=== PATIENT | female | born 1970 | race Caucasian/White ===

== ENCOUNTER → 2016-05-19 | Outpatient (CLI) | payer OTHER, BC ==
[2016-05-19 11:11] LABS: ALT 139 U/L (9-52); AST 169 U/L (14-36); Alkaline Phosphatase 144 U/L (38-126); Anion Gap 15 mmol/L; Blood Urea Nitrogen 22 mg/dL (7-17); Calcium 10.2 mg/dL (8.4-10.2); Carbon Dioxide 25 mmol/L (22-30); Chloride 101 mmol/L (98-107); Cholesterol 222 mg/dL (<200); Glucose 123 mg/dL (74-99); HDL Cholesterol 43 mg/dL (40-60); Non-African American GFR(MDRD) 57 (>60 ml/min/1.73 sqM); Potassium 5.2 mmol/L (3.5-5.1); Sodium 141 mmol/L (137-145); Total Bilirubin 0.8 mg/dL (0.2-1.3); Total Protein 8.1 g/dL (6.3-8.2); Triglycerides 226 mg/dL (<150)
== END | disposition home or self-care (01) ==
LOC: LABWHC1 10:10
PROVIDERS: ATTEND Internal Medicine Endocrinology, Diabetes & Metabolism
DX: E11.65 Type 2 diabetes mellitus with hyperglycemia (principal)
CPT/HCPCS: 36415; 80053; 80061; 82043

== ENCOUNTER → 2016-05-24 | Outpatient (CLI) | payer OTHER, BC ==
--- NOTE | 2016-05-24 10:41 | US ---
EXAMINATION TYPE: US abdomen limited DATE OF EXAM: 05/24/2016 10:23 AM COMPARISON: CT abdomen pelvis 07 May 2015 CLINICAL HISTORY: R79.9 ABNORMAL LABS. Cholecystectomy 2016, diabetes EXAM MEASUREMENTS: Liver Length: 20.7 cm Gallbladder Wall: cholecystectomy CBD: 0.2 cm Right Kidney: 11.6 x 4.8 x 5.1 cm TECHNOLOGIST IMPRESSION: extreme large body habitus, overlying bowel gas Pancreas: extreme large body habitus, overlying bowel gas Liver: Liver shows a coarse echotexture and is poorly penetrated by the ultrasound, liver is enlarged Gallbladder: removed Evidence for sonographic Lowery's sign: no CBD: wnl Right Kidney: wnl IMPRESSION: Findings compatible with fatty infiltration of the liver, hepatomegaly, postop change sta tus post cholecystectomy
== END ==
LOC: RADUSWWP 09:02
PROVIDERS: ATTEND Family Medicine
DX: R79.89 Other specified abnormal findings of blood chemistry (principal)
CPT/HCPCS: 76705

== ENCOUNTER → 2016-09-06 | Outpatient (CLI) | payer OTHER, BC ==
--- NOTE | 2016-09-06 12:09 | PN ---
A 46-year-old female patient, obese, coming in for followup regarding the obstructive sleep apnea. She is a preschool teacher aide. The patient was diagnosed having obstructive sleep apnea and she is currently on a BiPAP at a pressure of 20/16 cm of water. On today's evaluation, the patient has no specific complaints. She is very compliant with her BiPAP and she is averaging around 7.1 hours of BiPAP use every night. Her weight is down. At one point, she was weighing up to 320 pounds and currently she is down to 290 as the patient is following Weight Watcher's. She is averaging more than 7 hours of sleep every night and she is waking up alert and refreshed during the day. No major hypersomnia or sleepiness. No drowsiness. No fatigue. Her [place] score is down to 0. 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 She does not fall asleep while driving nor she gets drowsy or sleepy. She seems to be fully alert. No history of any motor vehicle accidents over this past year. The patient also has been diagnosed having diabetes mellitus and she was started on metformin. She has history of hypertension. Currently her blood pressure is under good control. She is still benefiting from the BiPAP treatment. In fact, she tells me that she is unable to sleep without her wearing her BiPAP. She is using a medium-size Simplus full face mask. She has turned the humidity off. She is using regular tubing. Her current vitals: BP is 121/73, pulse is 83, respirations 16, temperature 98.2, saturation is 98% on room air. Weight is 290. BMI is 47.7, [place] score is 0. GENERAL APPEARANCE: Calm, comfortable. HEENT: Crowding of posterior pharynx. There is no goiter or neck masses. LUNGS: Clear to auscultation. HEART: Sounds are regular rate and rhythm. Normal S1, S2. No S3, no S4. No murmurs. ABDOMEN: Obese, soft, nontender. No direct tenderness. No rebound ( ) or guarding. Organs cannot be palpated. EXTREMITIES: No edema. No cyanosis or clubbing. IMPRESSION: 1. Severe symptomatic obstructive sleep apnea. The patient continues to receive successful BiPAP therapy at a pressure of 20/16 cm of water. She is utilizing a Simplus full face mask. She is averaging around 7.1 hours of CPAP use and this is based on the compliance over the past 30 days. 2. Hypersomnia recovered and the patient's [place] score is down to 0. 3. Obesity with interval weight loss. Current BMI is 47.2. 4. Hypertension. 5. New onset diabetes mellitus. PLAN: 1. Treatment remains successful. The patient is very fit to continue her task as a preschool teacher aide. Her sleep apnea is adequately treated and the patient is very compliant. 2. Continue efforts to lose weight. The patient has successfully lost around 30 pounds utilizing Weight Watchers. 3. Implement good sleep hygiene measures. 4. Contact me should there be any issues with her WILLOW treatment. Her treatment is successful. No humidity is being utilized for now. Supplies will be refilled through [facility].
== END ==
LOC: SLEEP 09:45
PROVIDERS: ATTEND Internal Medicine Critical Care Medicine
DX: G47.33 Obstructive sleep apnea (adult) (pediatric) (principal); G47.10 Hypersomnia, unspecified; I10 Essential (primary) hypertension; E11.9 Type 2 diabetes mellitus without complications; E66.9 Obesity, unspecified; R63.4 Abnormal weight loss; Z68.42 Body mass index [BMI] 45.0-49.9, adult

== ENCOUNTER → 2016-12-02 | Outpatient (CLI) | payer OTHER, BC ==
[2016-12-02 10:38] LABS: ALT 94 U/L (9-52); AST 81 U/L (14-36); Alkaline Phosphatase 122 U/L (38-126); Anion Gap 15 mmol/L; Blood Urea Nitrogen 12 mg/dL (7-17); Carbon Dioxide 27 mmol/L (22-30); Chloride 100 mmol/L (98-107); Cholesterol 219 mg/dL (<200); Glucose 127 mg/dL (74-99); HDL Cholesterol 44 mg/dL (40-60); Non-African American GFR(MDRD) >60 (>60 ml/min/1.73 sqM); Sodium 142 mmol/L (137-145); Total Bilirubin 0.7 mg/dL (0.2-1.3); Total Protein 7.9 g/dL (6.3-8.2)
[2016-12-02 16:21] LABS: Urine Creatinine 82.2 mg/dL
== END | disposition home or self-care (01) ==
LOC: LABWHC1 09:40
PROVIDERS: ATTEND Internal Medicine Endocrinology, Diabetes & Metabolism
DX: E11.65 Type 2 diabetes mellitus with hyperglycemia (principal)
CPT/HCPCS: 36415; 80053; 80061; 82043; 82570

== ENCOUNTER → 2017-06-27 | Outpatient (CLI) | payer OTHER, BC ==
[2017-06-27 14:38] LABS: ALT 90 U/L (9-52); AST 122 U/L (14-36); Albumin 4.3 g/dL (3.5-5.0); Alkaline Phosphatase 147 U/L (38-126); Anion Gap 14 mmol/L; Blood Urea Nitrogen 12 mg/dL (7-17); Calcium 10.3 mg/dL (8.4-10.2); Carbon Dioxide 31 mmol/L (22-30); Chloride 96 mmol/L (98-107); Cholesterol 231 mg/dL (<200); Glucose 201 mg/dL (74-99); HDL Cholesterol 44 mg/dL (40-60); LDL Cholesterol,Calculated 123 mg/dL (0-99); Potassium 4.2 mmol/L (3.5-5.1); Sodium 141 mmol/L (137-145); Total Bilirubin 0.5 mg/dL (0.2-1.3); Total Protein 7.3 g/dL (6.3-8.2); Triglycerides 320 mg/dL (<150)
[2017-06-27 23:56] LABS: Hemoglobin A1C 10.3 % (4.0-6.0)
== END | disposition home or self-care (01) ==
LOC: LABWHC1 14:05
PROVIDERS: ATTEND Internal Medicine Endocrinology, Diabetes & Metabolism
DX: E11.65 Type 2 diabetes mellitus with hyperglycemia (principal)
CPT/HCPCS: 36415; 80053; 80061; 82043; 82570; 83036

== ENCOUNTER → 2017-09-05 | Outpatient (CLI) | payer OTHER, BC ==
--- NOTE | 2017-09-05 18:58 | PN ---
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 She is still on BiPAP with a pressure of 20/16. Her weight has been stable. She is averaging 8 hours of BiPAP use every night and she is waking up alert and refreshed during the day. 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 No motor vehicle accidents because of drowsiness or sleepiness. She is having symptoms of sinus allergies, and this is typical for her to have allergy flareups around spring/summer. She has excessive nasal congestion and drainage and stuffiness. She was treated for an acute sinus infection by [facility] and she was given a Medrol Dosepak by her ENT physician. She is also receiving immunotherapy through Dr. Casarez. Despite all this, she feels congested, stuffy and a tickling in the back of her throat. On and off she is coughing and she is also somewhat bronchospastic and wheezy and more short of breath. No fever or chills. No facial pain. No purulent drainage at this point in time. REVIEW OF SYSTEMS: Twelve-point review of systems was done. Weight has been stable. She has symptoms of allergic rhinitis for now. Occasional pressure over the sinuses. No headaches. No altered mentation. No nausea or vomiting. No chest pain. No nocturnal heartburn or shortness of breath or chest pain. PHYSICAL EXAMINATION: BP is 134/72, pulse 100, respirations 18, temperature 98.2. Weight is 307, height is 5 feet 5 inches, [place] score is zero. BMI is 50.3, saturation 96% on room air. GENERAL APPEARANCE: Calm, comfortable. Head is atraumatic, normocephalic. Neck is short, supple. There is no goiter or neck masses. LUNGS: Clear to auscultation. HEART: Sounds regular rate and rhythm. Normal S1, S2. No S3, S4. No murmurs. ABDOMEN: Soft, nontender. No organomegaly. EXTREMITIES: No edema. No cyanosis or clubbing. Skin is negative for any wounds or ulceration. IMPRESSION: 1. Symptomatic severe obstructive sleep apnea, successfully treated with a BiPAP pressure of 20/16. 2. Hypersomnia, improved while on BiPAP therapy. 3. Obesity with a body mass index of 50.3. 4. Hypertension. 5. Chronic allergic rhinitis. 6. Diabetes mellitus. PLAN: 1. Continue BiPAP at the same level of pressure, 20/16 cm of water. 2. Use the Simplus full-face mask. 3. Averaging more than 8 hours of BiPAP use per night. 4. DOT certification was obtained. 5. Add Flonase 1 spray each nostril twice a day in addition to a Medrol Dosepak regarding her active allergy symptoms. 6. See me back in a year's time in followup, earlier if needed. MMODL / IJN: [id number] /
== END ==
LOC: SLEEP 16:42
PROVIDERS: ATTEND Internal Medicine Critical Care Medicine
DX: G47.33 Obstructive sleep apnea (adult) (pediatric) (principal); E66.9 Obesity, unspecified; I10 Essential (primary) hypertension; J30.89 Other allergic rhinitis; E11.9 Type 2 diabetes mellitus without complications; Z68.43 Body mass index [BMI] 50.0-59.9, adult; Z99.89 Dependence on other enabling machines and devices

== ENCOUNTER 2017-09-13 04:04 | Emergency (ER) | payer OTHER, BC ==
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
[2017-09-13 04:21] VITALS: TEMP 97.1
[2017-09-13] MEDS ORDERED: SODIUM CHLORIDE 0.9% 500 ML IV STA (04:34)
[2017-09-13] MEDS ORDERED: KETOROLAC 30 MG/ML 1 ML VIAL IVP STA (04:35)
[2017-09-13] MEDS: MORPHINE SULFATE 2 MG/ML SYRINGE IV STA ×2 (04:44→05:30)
[2017-09-13 04:54] LABS: Basophils # (A) 0.1 k/uL (0-0.2); Basophils % (A) 1 %; Eosinophils # (A) 0.2 k/uL (0-0.7); Eosinophils % (A) 3 %; HCT 36.6 % (34.0-46.0); HGB 12.1 gm/dL (11.4-16.0); Lymphocytes # (A) 2.1 k/uL (1.0-4.8); Lymphocytes % (A) 29 %; MCH 28.1 pg (25.0-35.0); MCHC 33.2 g/dL (31.0-37.0); MCV 84.6 fL (80.0-100.0); Mean Platelet Volume 7.3; Monocytes # (A) 0.3 k/uL (0-1.0); Monocytes % (A) 4 %; Neutrophils # (A) 4.5 k/uL (1.3-7.7); Neutrophils % (A) 62 %; Platelet Count 201 k/uL (150-450); RBC 4.32 m/uL (3.80-5.40); WBC 7.4 k/uL (3.8-10.6)
[2017-09-13 05:05] LABS: ALT 134 U/L (9-52); AST 112 U/L (14-36); Albumin 4.2 g/dL (3.5-5.0); Alkaline Phosphatase 136 U/L (38-126); Anion Gap 14 mmol/L; Blood Urea Nitrogen 19 mg/dL (7-17); Calcium 9.6 mg/dL (8.4-10.2); Carbon Dioxide 25 mmol/L (22-30); Chloride 102 mmol/L (98-107); Glucose 181 mg/dL (74-99); Magnesium 1.5 mg/dL (1.6-2.3); Phosphorus 3.4 mg/dL (2.5-4.5); Potassium 4.8 mmol/L (3.5-5.1); Sodium 141 mmol/L (137-145); Total Bilirubin 0.7 mg/dL (0.2-1.3); Total Protein 6.7 g/dL (6.3-8.2)
[2017-09-13 05:05] LABS: Appearance,Urine Clear (Clear); Bilirubin,Urine Negative (Negative); Blood,Urine Negative (Negative); Color,Urine Colorless; Glucose,Urine (UA) Negative (Negative); Ketones,Urine Negative (Negative); Leukocyte Esterase,Urine Negative (Negative); Nitrite,Urine Negative (Negative); Protein,Urine Negative (Negative); Specific Gravity,Urine 1.005 (1.001-1.035); Urobilinogen,Urine <2.0 mg/dL (<2.0)
[2017-09-13 05:07] LABS: D-Dimer 0.25 mg/L FEU (<0.60); INR 1.1 (<1.2); Partial Thromboplastin Time 23.3 sec (22.0-30.0); Prothrombin Time 10.5 sec (9.0-12.0)
[2017-09-13 05:14] LABS: Creatine Kinase 52 U/L (30-135)
[2017-09-13 05:27] LABS: Creatine Kinase MB 1.4 ng/mL (0.0-2.4); Troponin I <0.012 ng/mL (0.000-0.034)
--- NOTE | 2017-09-13 05:54 | CT ---
EXAM: CT Abdomen and Pelvis Without Intravenous Contrast CLINICAL HISTORY: Reason: pain TECHNIQUE: Axial computed tomography images of the abdomen and pelvis without intravenous contrast. This CT exam was performed using one or more of the following dose reduction techniques: automated exposure control, adjustment of the mA and/or kV according to patient size, and/or use of iterative reconstruction technique. CTDI vol: 49.60 mGy. DLP: 2470.90 mGy-cm. COMPARISON: 02/14/16 FINDINGS: Lung bases: Unremarkable. No mass. No consolidation. ABDOMEN: Liver: The liver is prominent in size with fatty infiltration, stable. Gallbladder and bile ducts: Status post cholecystectomy. No ductal dilation. Pancreas: Unremarkable. No ductal dilation. Spleen: Unremarkable. No splenomegaly. Adrenals: Unremarkable. No mass. Kidneys and ureters: Unremarkable. No obstructing stones. No hydronephrosis. Stomach and bowel: Unremarkable. No obstruction. No mucosal thickening. PELVIS: Appendix: A normal appendix is noted in the pelvis medial to the cecum. Bladder: The bladder is minimally distended with apparent wall thickening. No stones. Reproductive: Unremarkable as visualized. ABDOMEN and PELVIS: Intraperitoneal space: Unremarkable. No free air. No significant fluid collection. Bones/joints: No acute fracture. No dislocation. Soft tissues: Unremarkable. Vasculature: Unremarkable. No abdominal aortic aneurysm. Lymph nodes: A portocaval lymph node is similar to previous exam. IMPRESSION: No acute CT findings or significant interval change from May 07, 2015 to suggest the cause of the patient's clinical symptoms. No hydronephrosis or evidence for renal collecting stones. Stable hepatomegaly with fatty infiltration. Status post cholecystectomy. The inferior thoracic and lumbar spine is stable from previous exam without significant degenerative changes or acute abnormality.
[2017-09-13 06:55] VITALS: BP 123/66; PULSE 83; RESP 18
== END 2017-09-13 07:04 | disposition home or self-care (01) ==
LOC: EC 04:04
DX: S39.012A Strain of muscle, fascia and tendon of lower back, initial encounter (principal); I10 Essential (primary) hypertension; G47.30 Sleep apnea, unspecified; Z87.891 Personal history of nicotine dependence; Z79.899 Other long term (current) drug therapy
CPT/HCPCS: 36415; 85379; 80053; 82550; 82553; 83735; 84100; 84484; 85025; 85610; 85730; 81003; 87086; 74176; 99284; 96374; 96375; J1885; J2270

== ENCOUNTER → 2017-10-03 | Outpatient (CLI) | payer OTHER, BC ==
[2017-10-03 10:42] LABS: Albumin 4.5 g/dL (3.5-5.0); Potassium 4.8 mmol/L (3.5-5.1); Total Bilirubin 0.6 mg/dL (0.2-1.3); Total Protein 7.1 g/dL (6.3-8.2)
[2017-10-03 16:51] LABS: Hemoglobin A1C 8.5 % (4.0-6.0)
== END | disposition home or self-care (01) ==
LOC: LABWHC1 09:29
PROVIDERS: ATTEND Internal Medicine Endocrinology, Diabetes & Metabolism
DX: E11.65 Type 2 diabetes mellitus with hyperglycemia (principal)
CPT/HCPCS: 36415; 80053; 80061; 82043; 82570; 83036

== ENCOUNTER 2017-10-06 09:43 | Day surgery (SDC) | payer OTHER, BC ==
[2017-10-04 15:03] VITALS: BMI 49.9
[~2017-10-06 09:43] MED LIST: LACTATED RINGERS 1,000 ML IV SCH
[2017-10-06 10:45] VITALS: TEMP 98.9
[2017-10-06] MEDS ORDERED: LIDOCAINE 1% 20 ML VIAL (10MG/ML) FOR IV START INTRADERMA ONE (10:45)
[2017-10-06 11:01] LABS: Glucose,Whole Blood 142 mg/dL (75-99)
[2017-10-06] MEDS ORDERED: PROPOFOL 10 MG/ML 20 ML VIAL IV ONE (11:16)
--- NOTE | 2017-10-06 11:39 | P.PCN ---
Date of Procedure: 10/06/17 Procedure(s) Performed: BRIEF HISTORY: Patient is a 47-year-old pleasant white female, scheduled for an elective colonoscopy as a part of a of intermittent rectal bleeding for the last several years duration. She denies any change in her bowel habits. No family history of colorectal neoplasia. PROCEDURE PERFORMED: Colonoscopy with snare polypectomy. PREOPERATIVE DIAGNOSIS: Intermittent rectal bleeding. IV sedation per Anesthesia. PROCEDURE: After informed consent was obtained, the patient, was brought into the endoscopy unit. IV sedation was administered by Anesthesia under continuous monitoring. Digital rectal examination was normal. Initially the Olympus CF- 160 flexible video colonoscope was then inserted in the rectum, gradually advanced into the cecum without any difficulty. Careful examination was performed as the scope was gradually being withdrawn. Ileocecal valve and the appendiceal orifice were visualized and appeared normal. Prep was excellent. Mucosa of the cecum, ascending colon, transverse colon, descending colon, sigmoid colon, and rectum appeared normal. In the proximal rectum there was a 1.5 cm polyp that was removed by snare polypectomy. Retroflexion was performed in the rectum and no lesions were seen. The patient tolerated the procedure well. IMPRESSION: 1.5 cm proximal rectal polyp status post polypectomy Small internal hemorrhoids RECOMMENDATIONS: Findings of this examination were discussed with the patient well as her family. She was advised to be on a high-fiber diet and fiber supplements on a regular basis. She will follow with the biopsy results and if the biopsy shows a tubular adenoma, she can have a repeat colonoscopy in 3-5 years.
[2017-10-06 11:44] VITALS: PULSE 94; RESP 16
[2017-10-06 12:01] VITALS: BP 132/84
== END 2017-10-06 12:31 | disposition home or self-care (01) ==
LOC: ORWHC2ENDO 09:43
PROVIDERS: ATTEND Internal Medicine Gastroenterology
DX: K62.1 Rectal polyp (principal); K64.8 Other hemorrhoids; K62.5 Hemorrhage of anus and rectum; I10 Essential (primary) hypertension; E78.5 Hyperlipidemia, unspecified; G47.33 Obstructive sleep apnea (adult) (pediatric); J45.909 Unspecified asthma, uncomplicated; E11.9 Type 2 diabetes mellitus without complications; G89.29 Other chronic pain; M54.5 Low back pain; K21.9 Gastro-esophageal reflux disease without esophagitis; E66.01 Morbid (severe) obesity due to excess calories; Z68.42 Body mass index [BMI] 45.0-49.9, adult; Z91.09 Other allergy status, other than to drugs and biological substances; Z79.84 Long term (current) use of oral hypoglycemic drugs; Z79.899 Other long term (current) drug therapy; Z87.891 Personal history of nicotine dependence
CPT/HCPCS: 45385; 81025; 88305; J2704

== ENCOUNTER → 2017-11-09 | Outpatient (CLI) | payer OTHER, BC ==
--- NOTE | 2017-11-10 10:23 | BD ---
EXAMINATION TYPE: Axial Bone Density DATE OF EXAM: 11/09/2017 COMPARISON: NONE CLINICAL HISTORY: 47 YR OLD FEMALE.....ICD-10 CODE: M19.90 OA Height: 65.4 Weight: 304 FRAX RISK QUESTIONS: Glucocorticoids (More than 3mos): YES (Ex: prednisone, prednisolone, methylprednisolone, dexamethasone, and hydrocortisone). Secondary Osteoporosis: YES 5. Chronic liver disease: LIVER ENZYMES RUN HIGH AT TIMES Current Tobacco Use: QUIT 2002 RISK FACTORS HISTORY OF: Diet low in dairy products/other sources of calcium: YES, LACTOSE ISSUE Postmenopausal woman: YES, AT 46 YRS OLD MEDICATIONS: Prednisone or other steroids: INHALER, RESCUE ONLY, FLONASE, ZYRTEC FOR ALLERGIES, PREDNISONE DOSE PA C FREQUENTLY How Long: OFF AND ON FOR ALL OF ADULT LIFE Additional Medications: BP MEDS, ORAL DIABETIC MEDS, MULTIVITAMIN, EYE VITAMIN, VIT D, MAGNESIUM Additional History: DIABETIC, OSTEOARTHRITIS EXAM MEASUREMENTS: Bone mineral densitometry was performed using the Deep Driver System. Bone mineral density as measured about the Lumbar spine is: ----- L1-L4(G/cm2): 1.257 T Score Values are as follows: ----- L1: 1.5 ----- L2: 1.1 ----- L3: 0.3 ----- L4: -0.3 ----- L1-L4: 0.6 Bone mineral density BASELINE STUDY Bone mineral density about the R hip (g/cm2): 1.280 Bone mineral density about the L hip (g/cm2): 1.238 T Score values are as follows: -----R Neck: 0.5 -----L Neck: 0.1 -----R Total: 2.2 -----L Total: 1.8 Bone mineral density FIRST BONE DENSITY TEST.........BASELINE STUDY FRAX%s: THERE IS A 4.4% CHANCE OF A MAJOR OSTEOPOROTIC FX AND A 0.1% FOR HIP FX.....PROBABILITY OF FX IN 10 YRS TIME IMPRESSION: Normal (Values between +1 and -1 indicate normal bone mass). Consider repeating this study in 5 year s or sooner if there is some new clinical indication. NOTE: T-SCORE=SD OF THE YOUNG ADULT MEAN.
--- NOTE | 2017-11-14 09:41 | MM ---
Reason for exam: screening (asymptomatic). Last mammogram was performed 3 years and 1 month ago. History: Patient is postmenopausal and had first child at age 35. Took hormonal contraceptives for 1 year beginning at age 30. Physical Findings: A clinical breast exam by your physician is recommended on an annual basis and results should be correlated with mammographic findings. MG Screening Mammo w CAD Bilateral CC and MLO view(s) were taken. Prior study comparison: October 09, 2014, bilateral MG screening mammo w CAD. November 12, 2009, bilateral digital screening mammogram. There are benign appearing stable punctate right calcifications and right upper outer quadrant focal asymmetry back to 2014. No suspicious abnormality. No significant changes when compared with prior studies. ASSESSMENT: Benign, BI-RAD 2 RECOMMENDATION: Routine screening mammogram of both breasts in 1 year.
== END | disposition home or self-care (01) ==
LOC: RADMAMWWP 14:33
PROVIDERS: ATTEND Family Medicine
DX: Z12.31 Encounter for screening mammogram for malignant neoplasm of breast (principal); M19.90 Unspecified osteoarthritis, unspecified site
CPT/HCPCS: 77067; 77080

== ENCOUNTER → 2018-04-05 | Outpatient (CLI) | payer OTHER, BC ==
--- NOTE | 2018-04-06 07:29 | EST ---
EXERCISE STRESS DATE OF SERVICE: 04/05/2018 AGE: 47 SEX: Female HT: 66" WT: 290 pounds PROTOCOL: Anup STAGE: II DURATION OF EXERCISE: 5 minutes HEART RATE REST: 113 BLOOD PRESSURE REST: 121/76 MAXIMUM HEART RATE ACHIEVED: 153 MAXIMUM BLOOD PRESSURE: 159/56 85% MPHR: 145 100% MPHR: 171 METS: 7.0 INDICATIONS: Family history. CLINICAL INFORMATION: Baseline EKG revealed normal sinus rhythm without significant ST-T changes. Patient walked on standard Anup protocol for 5 minutes, achieved a maximal heart rate of 153 beats per minute. Resting heart rate was 113 beats per minute. Peak blood pressure was 159/56. The patient developed some shortness of breath but did not have any angina or arrhythmia. EKG did not reveal any ST-segment changes to indicate ischemia. Exercise capacity seems to be suboptimal. This is a negative stress test with limited exercise capacity, but no evidence of any ischemia at the above-mentioned stress level. MMODL / IJN: [id number] /
--- NOTE | 2018-04-07 06:43 | ECHOF ---
Referral Reason:R07.89 Chest Pain MEASUREMENTS -------- HEIGHT: 167.6 cm WEIGHT: 133.8 kg BP: RVIDd: 2.9 cm (< 3.3) IVSd: 1.2 cm (0.6 - 1.1) LVIDd: 4.6 cm (3.9 - 5.3) LVPWd: 1.2 cm (0.6 - 1.1) IVSs: 1.4 cm LVIDs: 2.9 cm LVPWs: 1.4 cm Ao Diam: 2.7 cm (2.0 - 3.7) AV Cusp: 1.7 cm (1.5 - 2.6) LA Diam: 3.7 cm (2.7 - 3.8) MV E Gregory: 0.71 m/s MV DecT: 429 ms MV A Gregory: 0.76 m/s MV E/A Ratio: 0.93 RAP: 5.00 mmHg RVSP: 11.65 mmHg FINDINGS -------- Sinus rhythm. This was a technically difficult study with suboptimal views. The left ventricular size is normal. There is borderline concentric left ventricular hypertrophy. Overall left ventricular systolic function is normal with, an EF between 55 - 60 %. The right ventricle is normal in size and function. Normal LA size by volume 22+/-6 ml/m2. The right atrium is normal in size. 3 ml of Lumason was utilized for enhancement of images. There is mild aortic valve sclerosis. There is no evidence of aortic regurgitation. There is no e vidence of aortic stenosis. The mitral valve leaflets are mildly thickened. There is trace to mild mitral regurgitation. Trace tricuspid regurgitation present. Right ventricular systolic pressure is normal at < 35 mmHg. There is no evidence of pulmonary hypertension. The pulmonic valve was not well visualized. The aortic root size is normal. IVC Not well visulized. There is no pericardial effusion. CONCLUSIONS -------- 1. Sinus rhythm. 2. This was a technically difficult study with suboptimal views. 3. The left ventricular size is normal. 4. There is borderline concentric left ventricular hypertrophy. 5. Overall left ventricular systolic function is normal with, an EF between 55 - 60 %. 6. Normal LA size by volume 22+/-6 ml/m2. 7. 3 ml of Lumason was utilized for enhancement of images. 8. There is mild aortic valve sclerosis. 9. The mitral valve leaflets are mildly thickened. 10. There is trace to mild mitral regurgitation. 11. Trace tricuspid regurgitation present. 12. Right ventricular systolic pressure is normal at < 35 mmHg. 13. There is no evidence of pulmonary hypertension. 14. The pulmonic valve was not well visualized. 15. The aortic root size is normal. 16. IVC Not well visulized. 17. There is no pericardial effusion. ATHLETICS DIRECTOR: Frank Hardy RDCS
== END | disposition home or self-care (01) ==
LOC: RADNMMAIN 10:20
PROVIDERS: ATTEND Family Medicine
DX: I08.0 Rheumatic disorders of both mitral and aortic valves (principal)
CPT/HCPCS: 93017; 93306; Q9950

== ENCOUNTER 2018-06-21 00:27 | Emergency (ER) | payer OTHER, BC ==
[2018-06-21 00:42] VITALS: RESP 20
[2018-06-21] MEDS ORDERED: MORPHINE SULFATE 4 MG/ML SYRINGE IM STA (01:05)
[2018-06-21] MEDS ORDERED: predniSONE 50 MG TAB PO STA (01:05)
[2018-06-21] MEDS ORDERED: KETOROLAC 30 MG/ML 1 ML VIAL IM STA (01:05)
[2018-06-21] MEDS ORDERED: DIAZEPAM 5 MG/ML 2 ML INJ IM STA (01:05)
[2018-06-21] MEDS ORDERED: ACET/COD 300 MG/30 MG STARTER PACK 6 TAB BTL PO STA (02:17)
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
[2018-06-21 02:33] VITALS: BP 133/88; PULSE 87; TEMP 97.8
== END 2018-06-21 02:34 | disposition home or self-care (01) ==
LOC: EC 00:27
DX: M54.5 Low back pain (principal); M79.604 Pain in right leg; M79.605 Pain in left leg; I10 Essential (primary) hypertension; G47.30 Sleep apnea, unspecified; Z99.89 Dependence on other enabling machines and devices; Z87.891 Personal history of nicotine dependence; Z79.84 Long term (current) use of oral hypoglycemic drugs; Z79.899 Other long term (current) drug therapy; Z91.09 Other allergy status, other than to drugs and biological substances
CPT/HCPCS: 96372; 99283

== ENCOUNTER → 2018-07-17 | Outpatient (CLI) | payer OTHER, BC ==
--- NOTE | 2018-07-17 15:06 | PN ---
PROGRESS NOTE DATE OF SERVICE: 07/17/2018 A 48-year-old female patient coming to see me for an annual check regarding her obstructive sleep apnea. 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 She has also an upcoming appointment for DOC certification at [facility] in [place]. Clinically, she is doing great. She has no specific complaints. She is wearing her BiPAP every night. Her weight is down by around 19 pounds since her last evaluation. She is on a BiPAP pressure of 20/16 cm of water. Based on the compliance data that was collected over the past 30 days. The patient has been using her BiPAP every night for more than 4 hours. Her compliance for more than 4 hours is 100%. She has been averaging 7.9 hours of BiPAP use per night, her leak is 0 L/minute. Her tidal volumes is at 520 and had apnea-hypopnea index while on treatment is down to 0.6. She is using a medium-sized Simplus full-face mask. She was having some nasal congestion. I treated her with Flonase and she has seen Dr. Casarez, and she is doing immediate therapy. She is able to tolerate a full-face mask without any major difficulties. No nocturia. No hypersomnia or sleepiness during the day. No episodes of falling asleep while driving and she is fully alert and awake. REVIEW OF SYSTEMS: A 14-point review of system was done. Positive findings are mentioned above history of present illness. Of significance is the loss in weight. No fever, no chills. No chest pain. No heartburn, no nausea, no vomiting. She has chronic back pain and she has chronic allergic rhinitis for which she is receiving immunotherapy through ENT. PHYSICAL EXAMINATION: BP is 135/71, pulse 99, respirations 16, temperature 98.1. saturation 95% on room air. Height 65 inches, weight is 288, [place] score is 0, BMI is 47.3. GENERAL APPEARANCE: Calm, comfortable. HEAD: Traumatic, normocephalic. NECK: Supple. There is no JVD. No goiter or neck masses. Mallampati class IV. LUNGS: Clear to auscultation. HEART: Sounds regular rate and rhythm. Normal S1, S2. No S3. No murmurs. ABDOMEN: Soft, nontender. No organomegaly. No direct tenderness, rebound tenderness or guarding. EXTREMITIES: No edema. No cyanosis or clubbing. NEUROLOGIC: Alert and oriented x3. There is no focal neurological deficits. PSYCHIATRIC: Negative for anxiety or depression. Skin is negative for any wounds or ulceration. IMPRESSION: 1. Severe symptomatic obstructive sleep apnea. The patient has been successfully treated with BiPAP at a pressure of 20/16 cm of water. 2. Hypersomnia, recovered and the patient is [place] score is down to 0. 3. Obesity with interval 20 pounds weight loss. Current weight is down to 288 pounds with a BMI of 47.3. 4. Hypertension. 5. Allergic rhinitis. 6. Diabetes mellitus. PLAN: 1. Continue BiPAP therapy at the same level of pressure which is 20/16 cm of water. 2. Refilled the Simplus full-face mask. 3. The patient is extremely compliant that she is well treated. I do not think she was and at risk for falling asleep while driving. I think her risk of getting into a car accident is similar to the general population and she is well treated for obstructive sleep apnea. and I do not see any objections for his DOT certification to be renewed from the sleep apnea standpoint. No need for any pressure adjustments, refill or supplies. See me back in a year's time in followup. MMODL / IJN: [id number] /
== END | disposition home or self-care (01) ==
LOC: SLEEP 13:06
PROVIDERS: ATTEND Internal Medicine Critical Care Medicine
DX: G47.33 Obstructive sleep apnea (adult) (pediatric) (principal); E66.9 Obesity, unspecified; I10 Essential (primary) hypertension; J30.9 Allergic rhinitis, unspecified; E11.9 Type 2 diabetes mellitus without complications; Z68.42 Body mass index [BMI] 45.0-49.9, adult; Z99.89 Dependence on other enabling machines and devices

== ENCOUNTER → 2018-11-20 | Outpatient (CLI) | payer OTHER, BC ==
--- NOTE | 2018-11-20 17:45 | P.PN ---
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 The patient is coming in for a compliance check. She was offered a new machine by her insurance as her previous machine was not working properly. She is still very compliant. She is utilizing her machine every night. She was able to obtain a DOT certification as the patient was able to demonstrate excellent clinical response and compliance. I checked a new machine and this is a VPAP auto which is set at a S mode at a pressure of 20/16 cm of water. Based on the compliance data, the patient has been averaging around 8.1 hours of VPAP use per night. Her VPAP use for more than 4 hours as 100%. Tidal volume is at 520 with a rate of 15 and a minute ventilation of 7.9 L per minute and AHI is down to 1 indicating excellent using clinical response. She has no complaints. She has gained about 6 pounds since her last evaluation. She is not falling asleep while driving patient is wide awake and alert during the day. Her sleep quality remains good and the patient does not have any significant sleep fragmentation. She is using his Simplus fullface mask. Review of systems a full review of system was done using the 14 point review of system otherwise no other positive findings other than that was mentioned in the history of present illness. Objective - Vital Signs Vital signs: BP is 159/72 with a pulse of 16 suspicion of 16 and temperature 98.7. Saturation 96% on room air with a weight of 296. Therapy is morbidly obese, comfortable no acute distress.Head exam was generally normal. There was no scleral icterus or corneal arcus. Mucous membranes were moist.Neck was supple and without jugular venous distension, thyromegaly, or carotid bruits. Carotids were easily palpable bilaterally. There was no adenopathy. The patient is a Mallampati class IV with significant crowding of the posterior pharynx.Lungs were clear to auscultation and percussion, and with normal diaphragmatic excursion. No wheezes or rales were noted. Cardiac exam revealed the PMI to be normally situated and sized. The rhythm was regular and no extrasystoles were noted during several minutes of auscultation. The first and second heart sounds were normal and physiologic splitting of the second heart sound was noted. There were no murmurs, rubs, clicks, or gallops.Abdominal exam revealed normal bowel sounds. The abdomen was soft, non-tender, and without masses, organomegaly, or appreciable enlargement of the abdominal aorta. Lower extremitiesExamination of the extremities revealed easily palpable radial, femoral and pedal pulses. There was no cyanosis, clubbing or edema.Examination of the skin revealed no evidence of significant rashes, suspicious appearing nevi or other concerning lesions. Neurologically the patient is awake and alert and there is no focal neurological deficits. Psychiatric the patient has no anxiety or depression. Assessment and Plan Assessment: 1 severe symptomatic obstructive sleep apnea. The patient was able to demonstrate successful BiPAP use on today's compliancy checked. The patient has a VPAP automatic which is set at a pressure of 20/16 cm of water, S mode and she demonstrates excellent clinical response and compliancy 2 morbid obesity with a BMI of 47 3 hypersomnia improves current [place] scores down to 0 4 hypertension 5 diabetes mellitus 6 ALLERGIC rhinitis Plan I'm going to continue the same BiPAP setting. Pressure will be 20/16. Compliancy was checked. The patient is meeting all standards regarding compliancy and I do not have any issues with her BiPAP use. She is benefiting from the treatment. She is wide awake and alert and she has no complaints. Encourage further weight loss. Machine was checked. She'll see her back in your time in follow-up, earlier if needed.
== END | disposition home or self-care (01) ==
LOC: SLEEP 16:25
PROVIDERS: ATTEND Internal Medicine Critical Care Medicine
DX: G47.33 Obstructive sleep apnea (adult) (pediatric) (principal); I10 Essential (primary) hypertension; E11.9 Type 2 diabetes mellitus without complications; J30.9 Allergic rhinitis, unspecified; E66.01 Morbid (severe) obesity due to excess calories; Z68.42 Body mass index [BMI] 45.0-49.9, adult; Z99.89 Dependence on other enabling machines and devices

== ENCOUNTER → 2019-05-21 | Outpatient (CLI) | payer OTHER, BC ==
--- NOTE | 2019-05-21 20:35 | PN ---
PROGRESS NOTE This is a morbidly obese 49-year-old female patient with severe symptomatic obstructive sleep apnea. The patient is coming in for a regular check. 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 I noted that since her last evaluation the patient has lost a significant amount of weight. She used to weight 296 pounds and she is currently down to 278. Her BiPAP pressure is around 20/16. She is using a Simplus full-face mask. I checked the compliance data and the numbers look great. The patient is utilizing her machine every night. Her BiPAP use over the past 30 days has been 100% and she has been averaging around 8.1 hours of BiPAP use per night. Her BiPAP use for more than 4 hours is 100%. Tidal volume is at 500 with a ventilation of 8.1 L/minute and her AHI while on treatment is down to 0.7. The patient's leak is around 1 L/minute. She denies falling asleep behind the wheel. She does not fall asleep during day-to-day activities. She is fully alert and awake and her [place] score is estimated to be at zero, indicating no major hypersomnia or sleepiness. She does not take any naps during the day. She is averaging a good number of hours of sleep, which has been more than 8 hours. She is committed to losing some more weight in the future. 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 REVIEW OF SYSTEMS: Fourteen-point review of systems was done. Positive findings were all mentioned above in the history of present illness. MEDICATIONS: Medications include metformin 500 mg twice a day, Benicar 100/40 two tablets a day. Zyrtec p.r.n., magnesium supplements and multivitamins 1 tablet a day. PHYSICAL EXAMINATION: VITAL SIGNS: BP is 138/81, pulse is 100, respirations 18, temperature 98.6, saturation 96% on room air. Height is 5 feet 6 inches and weight is 278, and BMI 46.3. [place] score zero. GENERAL APPEARANCE: Calm, comfortable. HEAD: Atraumatic, normocephalic. NECK: Supple. Mallampati class IV. No goiter or neck masses. LUNGS: Clear to auscultation. HEART: Heart sounds are regular rate and rhythm. Normal S1, S2. No S3, S4. No murmurs. ABDOMEN: Soft, nontender. No organomegaly. EXTREMITIES: No edema. No cyanosis or clubbing. NEUROLOGIC: Awake and alert. There is no focal neurological deficit. IMPRESSION: 1. Severe symptomatic obstructive sleep apnea. The patient has been adequately treated with BiPAP therapy at a pressure of 20/16 cm of water. She is fully alert and awake. No hypersomnia. [place] score is down to zero and she demonstrated excellent compliance on her BiPAP machine, averaging more than 8 hours of BiPAP use without any difficulties. No concerns about falling asleep while on the job, especially as she is a business machine mechanic. 2. Obesity. She continues to lose weight on the order of 20 pounds. BMI is down to 46. 3. Hypersomnia. [place] score is down to zero. 4. Hypertension. 5. Diabetes mellitus. 6. Chronic allergic rhinitis. PLAN: I do not have any concern about this patient's obstructive sleep apnea treatment. I think she is successfully treated and she has no major hypersomnia or sleepiness. She poses no risk of falling asleep while driving. As such, I would recommend renewing this patient's DOT certification without any reservation. Keep the BiPAP pressure at the same setting. Keep the same mask interface. Encourage further weight loss. See me back in a year's time in followup. MMHAILEY / CECELIA: [id number] /
== END | disposition home or self-care (01) ==
LOC: SLEEP 13:06
PROVIDERS: ATTEND Internal Medicine Critical Care Medicine
DX: G47.33 Obstructive sleep apnea (adult) (pediatric) (principal); G47.10 Hypersomnia, unspecified; E66.9 Obesity, unspecified; I10 Essential (primary) hypertension; E11.9 Type 2 diabetes mellitus without complications; J30.89 Other allergic rhinitis; Z68.42 Body mass index [BMI] 45.0-49.9, adult; Z99.89 Dependence on other enabling machines and devices; Z79.84 Long term (current) use of oral hypoglycemic drugs; Z79.899 Other long term (current) drug therapy

== ENCOUNTER → 2020-02-13 | Outpatient (CLI) | payer OTHER, BC | END | disposition home or self-care (01) | LOC: LABWHC1 12:51 | PROVIDERS: ATTEND Family Medicine | DX: Z20.828 Contact with and (suspected) exposure to other viral communicable diseases (principal) | CPT/HCPCS: U0003; C9803 ==

== ENCOUNTER → 2020-10-06 | Outpatient (CLI) | payer OTHER, BC ==
--- NOTE | 2020-10-06 14:34 | P.PN ---
Subjective Progress Note Date: 10/06/20 10/24/2020, I'm seeing this pleasant 50-year-old here patient regarding her obstructive sleep apnea. 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 The patient is a 50-year-old female patient with known history of obstructive sleep apnea. She has been treated with BiPAP for many years and she remains extremely compliance. Her machine dysfunctional. Currently, her BiPAP is set at a pressure of 20/16 cm of water and she is using a Simplus fullface mask.based on a 30 day compliancy that was collected on the machine, the patient has been using her machine overnight without any interruption. She has achieved more than 4 hours of BiPAP use 100% of the time. She has been averaging around 8.1 hours of CPAP use per night at the pressures of 20/16 and her generator tidal volume is 520 mL with a minute ventilation of 7.5 L per minute and her AHI is down to 0.7 while being on treatment. She is doing extremely well. She has no complaints. No hypersomnia and sleepiness during the day. She is fully awake and alert while driving. She does not fall asleep behind the wheel. No chest pain or shortness of breath or any heartburn while being on the BiPAP treatment. Her weight is up. She is to weigh around 296 pounds back in 2019 and currently she is up to 304 pounds. Her current [place] score is 0.no stroke. No CVA. She is diabetic. No restlessness overnight. No sleepwalking. No sleep talking. No other complaints whatsoever. Review of system, 14 point review of system was done and the positive findings are all mentioned above. She has gainedweight in the order of 8 pounds over this past 2 years. No new onset comorbidities Medication includes metformin 500 mg twice a day, losartan hydrochlorothiazide 50/12.5 one tablet twice a day, Zyrtec, grams by mouth daily, reason supplements, vitamin D3 supplements, Centrum Silver, and [id number]/5 one tablet a day. Objective - Exam blood pressure is 134/82 with a pulse of 100 and the respiration of20 with a temperature of 97 4 and a saturation of 96% on room air. Weight is 304. Height is 5 feet and 6 inches and BMI is 49. Therapy is morbidly obese, comfortable no acute distress.Head exam was generally normal. There was no scleral icterus or corneal arcus. Mucous membranes were moist.Neck was supple and without jugular venous distension, thyromegaly, or carotid bruits. Carotids were easily palpable bilaterally. There was no adenopathy. The patient is a Mallampati class IV with significant crowding of the posterior pharynx.Lungs were clear to auscultation and percussion, and with normal diaphragmatic excursion. No wheezes or rales were noted. Cardiac exam revealed the PMI to be normally situated and sized. The rhythm was regular and no extrasystoles were noted during several minutes of auscultation. The first and second heart sounds were normal and physiologic splitting of the second heart sound was noted. There were no murmurs, rubs, clicks, or gallops.Abdominal exam revealed normal bowel sounds. The abdomen was soft, non-tender, and without masses, organomegaly, or appreciable enlargement of the abdominal aorta. Lower extremitiesExamination of the extremities revealed easily palpable radial, femoral and pedal pulses. There was no cyanosis, clubbing or edema.Examination of the skin revealed no evidence of significant rashes, suspicious appearing nevi or other concerning lesions. Neurologically the patient is awake and alert and there is no focal neurological deficits. Psychiatric the patient has no anxiety or depression. Assessment and Plan Plan: 1 severe symptomatic obstructive sleep apnea. The patient was able to demonstrate successful BiPAP use on today's compliancy checked. The patient has a VPAP automatic which is set at a pressure of 20/16 cm of water, S mode and she demonstrates excellent clinical response and compliancy. I checked the compliance data on 10/06/2020 and based on his 30 day compliancy information, the patient has been very compliant to her CPAP unit that she has been effectively treated and I have not made any recommendations for adjustments on her machine. She is currently using his Simplus fullface mask. I offered to the [employer] F20 fullface mask as an alternative. She is a cashiers bussers food runners. She is able to perform her tasks without any issues. She has gained weight and weight loss is recommended. 2 morbid obesity with a BMI of 47 3 hypersomnia improves current [place] scores down to 0 4 hypertension 5 diabetes mellitus 6 ALLERGIC rhinitis Plan continue same BiPAP setting which is 20/16 cm of water Continue using the Simplus fullface mask. I also offered that a [employer]fit F20 fullface mask Encourage weight loss The patient is awake and alert and there are no issues with hypersomnia and sleepiness. 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 She is cleared from the sleep apnea standpoint and I do not see any contraindications for this patient to have her DOT certification renewed as the patient has been effectively and efficiently treated for sleep apnea. Encourage weight loss. See back in a year's time.
== END | disposition home or self-care (01) ==
LOC: SLEEP 13:38
PROVIDERS: ATTEND Internal Medicine Critical Care Medicine
DX: G47.33 Obstructive sleep apnea (adult) (pediatric) (principal); E66.01 Morbid (severe) obesity due to excess calories; G47.10 Hypersomnia, unspecified; I10 Essential (primary) hypertension; E11.9 Type 2 diabetes mellitus without complications; J30.9 Allergic rhinitis, unspecified; Z68.42 Body mass index [BMI] 45.0-49.9, adult

== ENCOUNTER → 2021-04-27 | Outpatient (CLI) | payer OTHER, BC | END | disposition home or self-care (01) | LOC: LABWHC1 16:12 | PROVIDERS: ATTEND Family Medicine | DX: U07.1 COVID-19 (principal) | CPT/HCPCS: U0003; C9803 ==

== ENCOUNTER → 2021-09-13 | Outpatient (CLI) | payer OTHER, BC ==
[2021-09-13 18:47] LABS: Immunoglobulin E 7.81 IU/mL (0.00-114.00)
[2021-09-14 13:46] LABS: Alternaria alternata IgE <0.10 kU/L; Aspergillus fumagatus IgE <0.10 kU/L; Birch IgE <0.10 kU/L; Cat Epith & Dander IgE <0.10 kU/L; Cladosporian herbarum IgE <0.10 kU/L; Cockroach IgE <0.10 kU/L; Dermato. farinae IgE <0.10 kU/L; Dog Dander IgE <0.10 kU/L; Elm IgE <0.10 kU/L; Maple (Box Elder) IgE <0.10 kU/L; Oak IgE <0.10 kU/L; Ragweed,Common IgE <0.10 kU/L; Red Top (Bentgrass) IgE <0.10 kU/L
== END | disposition home or self-care (01) ==
LOC: LABWHC1 11:33
PROVIDERS: ATTEND Internal Medicine Critical Care Medicine
DX: J30.2 Other seasonal allergic rhinitis (principal)
CPT/HCPCS: 36415; 82785; 86003

== ENCOUNTER 2022-01-04 06:07 | Emergency (ER) | payer OTHER, BC ==
[2022-01-04 06:19] VITALS: RESP 18; TEMP 98.1
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
--- NOTE | 2022-01-04 07:29 | XR ---
EXAMINATION TYPE: XR foot complete LT DATE OF EXAM: 01/04/2022 COMPARISON: None HISTORY: Horse stepped on foot pain great toe TECHNIQUE: Three-view left foot FINDINGS: Plantar and Achilles tendon calcaneal heel spurs are present. Some soft tissue swelling ove r the dorsum of the foot. No acute fractures evident. The metatarsals align normally with the cuneiforms. Joint spaces are pres erved. Follow up exams can be performed 7-10 days from acute trauma for continued pain. IMPRESSION: 1. No acute osseous abnormality radiographically evident. 2. Follow up exams can be performed for continued pain.
[2022-01-04 07:49] VITALS: BP 146/84; PULSE 94
== END 2022-01-04 07:49 | disposition home or self-care (01) ==
LOC: EC 06:07
DX: S90.32XA Contusion of left foot, initial encounter (principal); I10 Essential (primary) hypertension; Z87.891 Personal history of nicotine dependence; Z91.09 Other allergy status, other than to drugs and biological substances; W10.8XXA Fall (on) (from) other stairs and steps, initial encounter; Z79.84 Long term (current) use of oral hypoglycemic drugs; Z79.899 Other long term (current) drug therapy
CPT/HCPCS: 99283

== ENCOUNTER → 2022-01-17 | Outpatient (CLI) | payer OTHER, BC ==
--- NOTE | 2022-01-17 13:40 | XR ---
Left foot HISTORY: Pain, swelling, bruising, trauma 3 views of the left foot correlated prior exam 01/04/2022 Bone mineralization is reduced, joint spaces and alignment are stable. Lucencies present at the level the distal phalanx of the first digit similar to prior exam, these may represent a nondisplaced frac ture. Soft tissue swelling is present. There is a plantar calcaneal spur. Enthesophyte present at the insertion of Achilles tendon. Spurring is present at the tibiotalar joint. IMPRESSION: Correlate for point tenderness at the distal first digit. Suspect a nondisplaced fracture . Low bone mineralization could limit sensitivity. CT or MRI could BE performed for better evaluation as indicated.
== END | disposition home or self-care (01) ==
LOC: RADXRMAIN 13:10
PROVIDERS: ATTEND Family Medicine
DX: M25.572 Pain in left ankle and joints of left foot (principal)

== ENCOUNTER 2022-08-17 13:50 | Observation (INO) | payer OTHER, BC ==
--- NOTE | 2022-08-17 15:31 | XR ---
EXAMINATION TYPE: XR chest 2V DATE OF EXAM: 08/17/2022 3:28 PM COMPARISON: Chest radiographs from 07/29/2015 TECHNIQUE: XR chest 2V Frontal and lateral views of the chest. CLINICAL INDICATION:Female, 52 years old with history of Chest Pain; FINDINGS: Lungs/Pleura: There is no evidence of pleural effusion, focal consolidation, or pneumothorax. Pulmonary vascularity: Unremarkable. Heart/mediastinum: Cardiomediastinal silhouette is unremarkable. Musculoskeletal: No acute osseous pathology. IMPRESSION: No acute cardiopulmonary disease/process.
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
[2022-08-17] MEDS ORDERED: ONDANSETRON 4 MG/2 ML VIAL IVP STA (16:05)
[2022-08-17 16:25] LABS: Basophils # (A) 0.1 k/uL (0-0.2); Basophils % (A) 1 %; Eosinophils # (A) 0.1 k/uL (0-0.7); Eosinophils % (A) 1 %; HCT 48.8 % (34.0-46.0); Lymphocytes # (A) 1.2 k/uL (1.0-4.8); Lymphocytes % (A) 10 %; MCH 27.3 pg (25.0-35.0); MCHC 32.7 g/dL (31.0-37.0); MCV 83.4 fL (80.0-100.0); Mean Platelet Volume 7.1; Monocytes # (A) 0.4 k/uL (0-1.0); Monocytes % (A) 3 %; Neutrophils % (A) 84 %; Platelet Count 264 k/uL (150-450); RBC 5.85 m/uL (3.80-5.40); RDW 12.9 % (11.5-15.5); WBC 11.8 k/uL (3.8-10.6)
[2022-08-17 16:51] LABS: ALT 74 U/L (4-34); AST 89 U/L (14-36); African American GFR (CKD) >90 (>60 ml/min/1.73 sqM); Albumin 4.6 g/dL (3.5-5.0); Alkaline Phosphatase 182 U/L (38-126); Anion Gap 13 mmol/L; Blood Urea Nitrogen 15 mg/dL (7-17); Calcium 9.2 mg/dL (8.4-10.2); Carbon Dioxide 25 mmol/L (22-30); Chloride 95 mmol/L (98-107); Glucose 323 mg/dL (74-99); Magnesium 1.5 mg/dL (1.6-2.3); Non-African American GFR(CKD) >90 (>60 ml/min/1.73 sqM); Potassium 3.7 mmol/L (3.5-5.1); Sodium 133 mmol/L (137-145); Total Bilirubin 0.9 mg/dL (0.2-1.3)
[2022-08-17 16:53] LABS: Partial Thromboplastin Time 23.8 sec (22.0-30.0); Prothrombin Time 10.7 sec (9.0-12.0)
[2022-08-17] MEDS ORDERED: ASPIRIN 81 MG PO STA (18:05)
[2022-08-17] MEDS ORDERED: NITROGLYCERIN OINT 1 INCH/GM PACKET TOPICAL STA (18:05)
[2022-08-17] MEDS ORDERED: SODIUM CHLORIDE 0.9% 1,000 ML IV ONE (18:05)
[2022-08-17] MEDS ORDERED: NITROGLYCERIN SL TABS 0.4 MG TAB SUBLINGUAL PRN (18:27)
[2022-08-17 20:38] LABS: Glucose,Whole Blood 359 mg/dL (70-110)
[2022-08-17] MEDS ORDERED: ATORVASTATIN 20 MG TAB PO SCH (21:00)
[2022-08-17] MEDS ORDERED: LORATADINE 10 MG TAB PO SCH (21:00)
[2022-08-17] MEDS ORDERED: LOSARTAN-HCTZ 50-12.5 MG 1 EACH TAB PO SCH (21:00)
[2022-08-17] MEDS ORDERED: glipiZIDE 5 MG TAB PO STA (21:03)
[2022-08-17] MEDS: INSULIN ASPART (NovoLOG) 100 UNIT/ML VIAL SQ SCH (21:26)
[2022-08-18] MEDS: NITROGLYCERIN OINT 1 INCH/GM PACKET TOPICAL SCH ×2 (00:03→06:39)
[2022-08-18 07:40] LABS: Glucose,Whole Blood 308 mg/dL (70-110)
[2022-08-18 07:45] VITALS: RESP 18
[2022-08-18] MEDS: INSULIN ASPART (NovoLOG) 100 UNIT/ML VIAL SQ SCH ×3 (07:50→18:42)
[2022-08-18] MEDS ORDERED: ASPIRIN 325 MG TAB PO SCH (09:00)
[2022-08-18] MEDS ORDERED: PIOGLITAZONE 15 MG TAB PO SCH (09:00)
[2022-08-18 09:06] LABS: Chol/HDL Ratio 4.06 Ratio; LDL Cholesterol,Calculated 78.1 mg/dL (0.0-131.0)
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
[2022-08-18 11:46] LABS: Glucose,Whole Blood 286 mg/dL (70-110)
[2022-08-18 14:28] VITALS: BP 164/75; PULSE 105; TEMP 99.3
[2022-08-18 17:23] LABS: Glucose,Whole Blood 295 mg/dL (70-110)
[2022-08-18] MEDS ORDERED: glipiZIDE 5 MG TAB PO SCH (17:30)
--- NOTE | 2022-08-19 11:32 | CA ---
Transthoracic Echo Report Name: Imelda Ashraf Age: 52 Gender: F : 1970 Exam Date: 08/18/2022 15:36 Exam Location: [facility] Ht (in): 66 Wt (lb): 300 Ordering Physician: Amara Robles Attending/Referring Phys: [id number], Travis Quiller Operator Roseanna Pantoja RDCS Procedure CPT: Indications: LV function Cardiac Hx: Technical Quality: Technically difficult study Contrast 1: Lumason Total Dose (mL): 4 Contrast 2: Total Dose (mL): MEASUREMENTS (Male / Female) Normal Values 2D ECHO LV Diastolic Diameter PLAX 4.1 cm 4.2 - 5.9 / 3.9 - 5.3 cm LV Systolic Diameter PLAX 2.8 cm IVS Diastolic Thickness 1.5 cm 0.6 - 1.0 / 0.6 - 0.9 cm LVPW Diastolic Thickness 1.4 cm 0.6 - 1.0 / 0.6 - 0.9 cm LV Relative Wall Thickness 0.7 LA Volume 31.6 cm??? 18 - 58 / 22 - 52 cm??? M-MODE Aortic Root Diameter MM 2.6 cm LA Systolic Diameter MM 4.1 cm LA Ao Ratio MM 1.6 DOPPLER AV Peak Velocity 160.5 cm/s AV Peak Gradient 10.3 mmHg AV Mean Velocity 115.7 cm/s AV Mean Gradient 5.8 mmHg AV Velocity Time Integral 25.1 cm LVOT Peak Velocity 104.2 cm/s LVOT Peak Gradient 4.3 mmHg LVOT Velocity Time Integral 18.4 cm MV Area PHT 4.0 cm??? Mitral E Point Velocity 106.1 cm/s Mitral A Point Velocity 100.7 cm/s Mitral E to A Ratio 1.1 MV Deceleration Time 191.4 ms MV E' Velocity 7.5 cm/s Mitral E to MV E' Ratio 14.2 TR Peak Velocity 196.8 cm/s TR Peak Gradient 15.5 mmHg Right Ventricular Systolic Press 20.5 mmHg FINDINGS Left Ventricle Moderately increased left ventricular wall thickness. Left ventricular cavity size normal. Normal left ventricular systolic function with no obvious regional wall motion abnormalities. Left ventricular ejection fraction is estimated at 55-60 %. Right Ventricle Normal right ventricular size and function. Right Atrium Normal right atrial size. Left Atrium Normal left atrial size. Mitral Valve Structurally normal mitral valve. Aortic Valve No aortic valve stenosis or regurgitation. Tricuspid Valve Structurally normal tricuspid valve. Mild tricuspid regurgitation. Pulmonic Valve Trace pulmonic regurgitation. Pericardium No pericardial effusion. Aorta Normal size aortic root and proximal ascending aorta. CONCLUSIONS Dictated but study is suboptimal acoustic windows, contrast echo study Preserved LV size and systolic function Previewed by: Dr. Steve Hayward MD (Electronically Signed) Final Date: 19 Aug 2022 11:32
== END 2022-08-18 18:43 | disposition home or self-care (01) ==
LOC: EC 13:50 → 6NMEDSUR 18:27 → INTOOBSV 18:27 → 6NMEDSUR 18:55
PROVIDERS: ADMIT Hospitalist; ATTEND Hospitalist
DX: R07.89 Other chest pain (principal); E78.00 Pure hypercholesterolemia, unspecified; K21.9 Gastro-esophageal reflux disease without esophagitis; I10 Essential (primary) hypertension; E11.65 Type 2 diabetes mellitus with hyperglycemia; R79.89 Other specified abnormal findings of blood chemistry; I07.1 Rheumatic tricuspid insufficiency; I37.1 Nonrheumatic pulmonary valve insufficiency; G47.33 Obstructive sleep apnea (adult) (pediatric); Z82.49 Family history of ischemic heart disease and other diseases of the circulatory system; Z79.899 Other long term (current) drug therapy; Z79.84 Long term (current) use of oral hypoglycemic drugs; Z90.49 Acquired absence of other specified parts of digestive tract; Z87.891 Personal history of nicotine dependence; Z82.3 Family history of stroke
CPT/HCPCS: 96374; 99285; 36415; 93005; 93306; 80061; 80053; 83735; 84484; 85025; 85610; 85730; 71046; G0378 ×2; J2405; Q9950

== ENCOUNTER → 2022-11-02 | Outpatient (CLI) | payer OTHER, BC ==
--- NOTE | 2022-11-02 12:51 | US ---
EXAMINATION TYPE: US liver DATE OF EXAM: 11/02/2022 COMPARISON: NONE CLINICAL INDICATION: Female, 52 years old with history of R74.8 ABNORMAL LEVELS OF OTHER SERUM ENZYME S; abnormal liver enzymes TECHNIQUE: Multiple sonographic images of the right upper quadrant are obtained. FINDINGS: EXAM MEASUREMENTS: Liver Length: 22.5 cm Gallbladder: Surgically absent CBD: .6 cm Right Kidney: 10 x 4.8 x 5.3 cm DEBIT AGENT NOTES: Pancreas: Tail obscured by overlying bowel gas Liver: Hepatomegaly. No focal lesion seen. Echogenicity appears relatively homogeneous. Gallbladder: Surgically absent Evidence for sonographic Lowery's sign: No CBD: wnl Right Kidney: No hydronephrosis or masses seen IMPRESSION: Hepatomegaly at 22.5 cm. No focal lesion seen. Bile duct upper limits of normal at 6 mm, acceptable g iven postcholecystectomy status.
== END | disposition home or self-care (01) ==
LOC: RADUSWWP 07:39
PROVIDERS: ATTEND Internal Medicine Gastroenterology
DX: R16.0 Hepatomegaly, not elsewhere classified (principal); R74.8 Abnormal levels of other serum enzymes
CPT/HCPCS: 76705

== ENCOUNTER 2022-11-15 07:45 | Day surgery (SDC) | payer OTHER, BC ==
[2022-11-10 14:48] VITALS: BMI 47.7
[2022-11-15 08:36] VITALS: TEMP 98
[2022-11-15 08:45] LABS: Glucose,Whole Blood 136 mg/dL (70-110)
[2022-11-15] MEDS: LACTATED RINGERS 1,000 ML IV SCH ×2 (08:46→08:52)
[2022-11-15] MEDS ORDERED: PROPOFOL 10 MG/ML 20 ML VIAL IV ONE (08:57)
--- NOTE | 2022-11-15 09:17 | P.PCN ---
Date of Procedure: 11/15/22 Procedure(s) Performed: BRIEF HISTORY: Patient is a 52-year-old pleasant white female scheduled for an elective colonoscopy as a part of evaluation of prior history of colon polyps. PROCEDURE PERFORMED: Colonoscopy with snare polypectomy. PREOPERATIVE DIAGNOSIS: History of colon polyps. IV sedation per Anesthesia. PROCEDURE: After informed consent was obtained, the patient, was brought into the endoscopy unit. IV sedation was administered by Anesthesia under continuous monitoring. Digital rectal examination was normal. Initially the Olympus CF-160 flexible video colonoscope was then inserted in the rectum, gradually advanced into the cecum without any difficulty. Careful examination was performed as the scope was gradually being withdrawn. Ileocecal valve and the appendiceal orifice were visualized and appeared normal. Prep was excellent. Mucosa of the cecum, ascending colon, transverse colon, descending colon, sigmoid colon, and rectum appeared normal. In the proximal rectum there was a 7 mm polyp removed by snare polypectomy. Retroflexion was performed in the rectum and no lesions were seen. The patient tolerated the procedure well. IMPRESSION: 7 mm proximal rectal polyp status post polypectomy Rest of the colon appeared normal RECOMMENDATIONS: Findings of this examination were discussed with the patient is a family.. She was advised to follow with the biopsy results and have a repeat colonoscopy in 5 years.
[2022-11-15 09:39] VITALS: BP 144/88; PULSE 99; RESP 20
== END 2022-11-15 09:50 | disposition home or self-care (01) ==
LOC: ORWHC2ENDO 07:45
PROVIDERS: ATTEND Internal Medicine Gastroenterology
DX: Z12.11 Encounter for screening for malignant neoplasm of colon (principal); K63.5 Polyp of colon; I10 Essential (primary) hypertension; G47.33 Obstructive sleep apnea (adult) (pediatric); K21.9 Gastro-esophageal reflux disease without esophagitis; Z87.891 Personal history of nicotine dependence; Z86.010 Personal history of colon polyps; Z79.899 Other long term (current) drug therapy
CPT/HCPCS: 45385; J2704; 88305

== ENCOUNTER → 2023-02-15 | Outpatient (CLI) | payer OTHER, BC ==
[2023-02-15 17:23] LABS: Basophils # (A) 0.06 X 10*3/uL (0.00-0.10); Eosinophils # (A) 0.14 X 10*3/uL (0.04-0.35); Eosinophils % (A) 2.4 %; HCT 38.3 % (37.2-46.3); HGB 12.4 g/dL (12.0-15.0); Lymphocytes # (A) 1.73 X 10*3/uL (0.90-5.00); Lymphocytes % (A) 29.5 %; MCH 28.1 pg (27.0-32.0); MCHC 32.4 g/dL (32.0-37.0); MCV 86.8 FL (80.0-97.0); Mean Platelet Volume 9.3 FL (9.5-12.2); Monocytes # (A) 0.41 X 10*3/uL (0.20-1.00); NRBC Per 100 WBC 0 X 10*3/uL (0.00-0.01); Neutrophils % (A) 59.6 %; Platelet Count 215 X 10*3/uL (140-440); RBC 4.41 X 10*6/uL (4.10-5.20); RDW 13.7 % (11.5-14.5); WBC 5.87 X 10*3/uL (4.50-10.00)
[2023-02-15 20:27] LABS: Albumin 4.1 g/dL (3.8-4.9); Protein, Total 6.7 g/dL (6.2-8.2)
[2023-02-15 20:39] LABS: % Iron Saturation 15.82 (12.00-45.00); ALT 25 U/L (8-44); AST 25 U/L (13-35); Albumin 4.3 g/dL (3.8-4.9); Albumin/Globulin Ratio 1.72 Ratio (1.60-3.17); Alkaline Phosphatase 107 U/L (41-126); Blood Urea Nitrogen 13.3 mg/dL (9.0-27.0); Calcium 9.6 mg/dL (8.7-10.3); Carbon Dioxide 27.3 mmol/L (21.6-31.8); Chloride 103 mmol/L (96-109); Globulin 2.5 g/dL (1.6-3.3); Glucose 105 mg/dL (70-110); Iron 62 UG/DL (50-170); Potassium 4.4 mmol/L (3.5-5.5); Sodium 141 mmol/L (135-145); Total Bilirubin 0.4 mg/dL (0.3-1.2); Total Iron Binding Capacity 392 UG/DL (228-460); Total Protein 6.8 g/dL (6.2-8.2)
[2023-02-15 20:45] LABS: Hepatitis B Surface Antigen Nonreactive; Hepatitis C IgG Antibody Nonreactive
[2023-02-15 21:04] LABS: Ceruloplasmin 26.8 mg/dL (20.0-60.0)
[2023-02-15 22:29] LABS: Microalbumin Creatinine Ratio <36 mg/g Cr (0-30)
== END | disposition home or self-care (01) ==
LOC: LABWHC1 12:13
PROVIDERS: ATTEND Internal Medicine Gastroenterology
DX: E11.65 Type 2 diabetes mellitus with hyperglycemia (principal); R74.8 Abnormal levels of other serum enzymes
CPT/HCPCS: 36415; 80053; 82043; 82103; 82390; 82570; 82728; 83036; 83516; 83540; 83550; 84165; 85025; 86038; 86803; 87340

== ENCOUNTER → 2023-06-19 | Outpatient (CLI) | payer OTHER, BC ==
[2023-06-19 19:08] LABS: ALT 22 U/L (8-44); AST 30 U/L (13-35); Albumin 4.4 g/dL (3.8-4.9); Albumin/Globulin Ratio 1.83 Ratio (1.60-3.17); Alkaline Phosphatase 115 U/L (41-126); Carbon Dioxide 26.5 mmol/L (21.6-31.8); Chloride 102 mmol/L (96-109); Chol/HDL Ratio 3.09 Ratio; Globulin 2.4 g/dL (1.6-3.3); Glucose 120 mg/dL (70-110); LDL Cholesterol,Calculated 78.4 mg/dL (0.0-131.0); Potassium 4.3 mmol/L (3.5-5.5); Sodium 140 mmol/L (135-145); Total Bilirubin 0.3 mg/dL (0.3-1.2); Total Protein 6.8 g/dL (6.2-8.2)
[2023-06-19 22:24] LABS: Microalbumin Creatinine Ratio <26 mg/g Cr (0-30); Urine Creatinine 46.3 mg/dL (28.0-217.0)
== END | disposition home or self-care (01) ==
LOC: LABWHC1 09:31
PROVIDERS: ATTEND Internal Medicine
DX: E11.65 Type 2 diabetes mellitus with hyperglycemia (principal); E55.9 Vitamin D deficiency, unspecified
CPT/HCPCS: 36415; 80053; 80061; 82043; 82306; 82570; 83036

== ENCOUNTER → 2024-03-22 | Outpatient (CLI) | payer OTHER, BC ==
[2024-03-22 18:35] LABS: ALT 45 U/L (8-44); AST 42 U/L (13-35); Albumin 4.3 g/dL (3.8-4.9); Albumin/Globulin Ratio 1.72 Ratio (1.60-3.17); Alkaline Phosphatase 156 U/L (41-126); BUN/Creat Ratio 15.25 Ratio (12.00-20.00); Blood Urea Nitrogen 12.2 mg/dL (9.0-27.0); Calcium 9.7 mg/dL (8.7-10.3); Carbon Dioxide 28.2 mmol/L (21.6-31.8); Chloride 100 mmol/L (96-109); Chol/HDL Ratio 3.03 Ratio; Globulin 2.5 g/dL (1.6-3.3); Glucose 214 mg/dL (70-110); LDL Cholesterol,Calculated 74.4 mg/dL (0.0-131.0); Potassium 4.6 mmol/L (3.5-5.5); Sodium 140 mmol/L (135-145); Total Bilirubin 0.4 mg/dL (0.3-1.2); Total Protein 6.8 g/dL (6.2-8.2)
[2024-03-22 19:59] LABS: Microalbumin Creatinine Ratio <24 mg/g Cr (0-30); Urine Creatinine 49.9 mg/dL (28.0-217.0)
== END | disposition home or self-care (01) ==
LOC: LABWHC1 12:59
PROVIDERS: ATTEND Internal Medicine
DX: I10 Essential (primary) hypertension (principal); E11.65 Type 2 diabetes mellitus with hyperglycemia; E78.5 Hyperlipidemia, unspecified
CPT/HCPCS: 36415; 80053; 80061; 82043; 82570; 83036

== ENCOUNTER → 2024-06-17 | Outpatient (CLI) | payer OTHER, BC ==
[2024-06-17 19:33] LABS: ALT 65 U/L (8-44); AST 78 U/L (13-35); Albumin 4.4 g/dL (3.8-4.9); Albumin/Globulin Ratio 1.91 Ratio (1.60-3.17); Alkaline Phosphatase 141 U/L (41-126); BUN/Creat Ratio 13.89 Ratio (12.00-20.00); Blood Urea Nitrogen 12.5 mg/dL (9.0-27.0); Calcium 9.5 mg/dL (8.7-10.3); Carbon Dioxide 23.5 mmol/L (21.6-31.8); Chloride 102 mmol/L (96-109); Chol/HDL Ratio 2.83 Ratio; Globulin 2.3 g/dL (1.6-3.3); Glucose 170 mg/dL (70-110); LDL Cholesterol,Calculated 77.2 mg/dL (0.0-131.0); Potassium 4.4 mmol/L (3.5-5.5); Sodium 140 mmol/L (135-145); Total Bilirubin 0.3 mg/dL (0.3-1.2); Total Protein 6.7 g/dL (6.2-8.2)
== END | disposition home or self-care (01) ==
LOC: LABWHC1 13:14
PROVIDERS: ATTEND Nurse Practitioner Gerontology
DX: E11.65 Type 2 diabetes mellitus with hyperglycemia (principal); E55.9 Vitamin D deficiency, unspecified
CPT/HCPCS: 36415; 80053; 80061; 82043; 82306; 82570; 83036

== ENCOUNTER → 2024-09-02 | Outpatient (CLI) | payer OTHER, BC ==
[2024-09-02 15:11] LABS: HCT 40.5 % (37.2-46.3); HGB 12.9 g/dL (12.0-15.0); MCH 27.7 pg (27.0-32.0); MCHC 31.9 g/dL (32.0-37.0); MCV 86.9 FL (80.0-97.0); Mean Platelet Volume 10.2 FL (9.5-12.2); NRBC Per 100 WBC 0 X 10*3/uL (0.00-0.01); Platelet Count 246 X 10*3/uL (140-440); RBC 4.66 X 10*6/uL (4.10-5.20); RDW 13.8 % (11.5-14.5); WBC 6.62 X 10*3/uL (4.50-10.00)
[2024-09-02 15:31] LABS: BUN/Creat Ratio 13.56 Ratio (12.00-20.00); Blood Urea Nitrogen 12.2 mg/dL (9.0-27.0); Chol/HDL Ratio 2.73 Ratio; Glucose 112 mg/dL (70-110)
[2024-09-02 15:32] LABS: ALT 33 U/L (8-44); AST 37 U/L (13-35); Albumin 4.4 g/dL (3.8-4.9); Albumin/Globulin Ratio 1.69 Ratio (1.60-3.17); Alkaline Phosphatase 101 U/L (41-126); Calcium 9.6 mg/dL (8.7-10.3); Carbon Dioxide 23.8 mmol/L (21.6-31.8); Chloride 102 mmol/L (96-109); Globulin 2.6 g/dL (1.6-3.3); LDL Cholesterol,Calculated 57.1 mg/dL (0.0-131.0); Potassium 4.5 mmol/L (3.5-5.5); Sodium 140 mmol/L (135-145); T4, Free (Free Thyroxine) 1.11 ng/dL (0.80-1.80); Total Bilirubin 0.4 mg/dL (0.3-1.2)
== END | disposition home or self-care (01) ==
LOC: LABWHC1 09:47
PROVIDERS: ATTEND Family Medicine
DX: Z00.00 Encounter for general adult medical examination without abnormal findings (principal); E11.9 Type 2 diabetes mellitus without complications; R94.5 Abnormal results of liver function studies; R53.83 Other fatigue
CPT/HCPCS: 36415; 80053; 80061; 83036; 84439; 84443; 85027